=== PATIENT | male | born 1985 | race African-American/Black ===

== ENCOUNTER 2018-12-02 19:45 | Emergency (ER) | payer OTHER ==
[~2018-12-02] VITALS: Ht 182.9 cm; Wt 79.4 kg
[2018-12-02] MEDS ORDERED: KLONOPIN1 MG ORAL (20:00)
[2018-12-02] MEDS ORDERED: XANAX2 MG ORAL (20:00)
[2018-12-02] MEDS ORDERED: DEPAKOTE250 MG PO (20:00)
[2018-12-02 20:12] VITALS: BP 127/78
--- NOTE | 2018-12-02 20:12 | NUR ---
ER Nurse Note: Pt came from home c/o bilateral eye redness and itching for a few days. No drainage, no trauma to eyes. Pupils round, equal, reactive to light. Pt expresses 7/10 pain. Pt a&ox4, VSS, no signs of distress. ER PA at pt side, will continue to montior.
--- NOTE | 2018-12-02 20:36 | Emergency Room Report ---
History of Present Illness General Chief Complaint: Eye Problems Present Illness HPI 33-year-old male presents to the emergency department complaining of 7 out of 10 in severity bilateral burning eye pain with discharge and erythema since yesterday. Patient reports he felt his symptoms coming on since he had some swelling in the bilateral eyes. Patient reports history of immune compromise and states he is HIV. Patient states that he does take his antiretrovirals and states his CD4 count is well above normal. Patient denies fevers, chills, swollen tender lymph nodes, recent URI or nasal congestion. Patient does report moderate amount of sneezing and allergies lately and states that symptoms may have been treated his allergies at first. Patient denies foreign body sensation he reports he does wear contact lenses however since onset of infection is been using his glasses. Patient states that he is up-to-date with his tetanus vaccination. Allergies: Coded Allergies: ASPIRIN (Verified Allergy, Unknown, 12/02/18) Uncoded Allergies: DUST, POLLEN, MOLD, PET DANDER (Allergy, Unknown, 12/02/18) Patient History Past Medical History: see triage record, HIV Past Surgical History: none Pertinent Family History: none Immunizations: UTD Reviewed Nursing Documentation: PMH: Agreed; PSxH: Agreed Nursing Documentation-PMH Hx Asthma: Yes History Of Psychiatric Problem: Yes - bipolar, anxiety Review of Systems All Other Systems: negative except mentioned in HPI Physical Exam Vital Signs Date Time Temp Pulse Resp B/P (MAP) Pulse Ox O2 Delivery O2 Flow Rate FiO2 12/02/18 19:56 98.1 76 16 127/78 100 Room Air Sp02 EP Interpretation: reviewed, normal General Appearance: no apparent distress, alert, GCS 15, non-toxic Head: normocephalic, atraumatic Eyes: bilateral eye normal inspection, bilateral eye PERRL, bilateral eye EOMI , bilateral eye photophobia, bilateral eye visual acuity - 20/70, bilateral eye other - conjunctival erythema, purulent green d/c bilaterally -copious amount. no lid swelling noted. ENT: hearing grossly normal, normal pharynx, normal voice, TMs + canals normal , moist mucus membranes, nasal congestion Neck: full range of motion Respiratory: chest non-tender, lungs clear, normal breath sounds, speaking full sentences Cardiovascular #1: regular rate, rhythm Musculoskeletal: back normal, gait/station normal, normal range of motion, non- tender Neurologic: alert, oriented x3, responsive, motor strength/tone normal, sensory intact, speech normal, grossly normal Psychiatric: judgement/insight normal Skin: normal color, no rash, warm/dry, well hydrated Lymphatic: no adenopathy Medical Decision Making PA Attestation Dr. Regan is my supervising Physician whom patient management has been discussed with. Diagnostic Impression: Primary Impression: Bacterial conjunctivitis of both eyes ER Course 33-year-old male presents to the emergency department complaining of 7 out of 10 in severity bilateral burning eye pain with discharge and erythema since yesterday. Patient reports he felt his symptoms coming on since he had some swelling in the bilateral eyes. Patient reports history of immune compromise and states he is HIV. Patient states that he does take his antiretrovirals and states his CD4 count is well above normal. Patient denies fevers, chills, swollen tender lymph nodes, recent URI or nasal congestion. Patient does report moderate amount of sneezing and allergies lately and states that symptoms may have been treated his allergies at first. Patient denies foreign body sensation he reports he does wear contact lenses however since onset of infection is been using his glasses. Patient states that he is up-to-date with his tetanus vaccination. Ddx considered but are not limited to: corneal abrasion, acute glaucoma, globe rupture, FB, Corneal Ulcer, conjunctivitis. Iridis, orbital cellulitis,keratitis , sinusitis Vital signs: are WNL, pt. is afebrile H&PE are most consistent with: bacterial conjunctivitis. VA - 20/70 bilaterally without his lenses ORDERS: none at this time. ED INTERVENTIONS: - 1g Azithromycin [place] PO-5mg -I do not identify an emergent condition at this time. With current presentation , pt. is stable for close outpatient follow up and conservative treatment. D/ w pt. to return promptly to ED with worsening or new symptoms.- Pt. verbalizes' understanding and agreement with proposed treatment plan. DISCHARGE: At this time pt. is stable for d/c to home. Will provide printed patient care instructions, and any necessary prescriptions. Care plan and follow up instructions have been discussed with the patient prior to discharge. Last Vital Signs Date Time Temp Pulse Resp B/P (MAP) Pulse Ox O2 Delivery O2 Flow Rate FiO2 12/02/18 20:12 98.1 74 16 127/78 100 Room Air Disposition: HOME, SELF-CARE Condition: Stable Scripts Ofloxacin (OCUFLOX) 5 Ml Drops 2 DROP OP BID, #5 ML Prov: Valeria Dennis 12/02/18 Patient Instructions: Bacterial Conjunctivitis, [id number] Additional Instructions: Take medications as directed. Follow up with a Photography Professor in 3 days, even if your symptoms have resolved. --Please review list of primary care clinics, if you do not already have a primary care provider Return sooner to ED if new symptoms occur, or current symptoms become worse. - Please note that this Emergency Department Report was dictated using [employer] technology software, occasionally this can lead to erroneous entry secondary to interpretation by the dictation equipment. Valeria Dennis Dec 02, 2018 20:36
[2018-12-02] MEDS ORDERED: OCUFLOX5 ML OP (20:38)
[2018-12-02] MEDS ORDERED: Azithromycin 250mg tab ORAL ONE (20:45)
[2018-12-02] MEDS ORDERED: HYDROcodone/Acetamin 5/325 tab ORAL ONE (21:00)
[2018-12-02 21:05] VITALS: BP 126/74
--- NOTE | 2018-12-02 21:05 | NUR ---
ER Nurse Note: Pt seen, treated, medically cleared by ER PA for discharge. Discharge instructions and prescriptions given with repeat verbaalization by pt. Instructed pt to follow up with primary care provider within one week. Pt a&ox4, VSS, no signs of distress. Pt expressed pain, ER PA aware, pain meds given. ID band removed. Pt left with steady gait via own transporation with friend.
== END 2018-12-02 21:05 | disposition home or self-care (01) ==
LOC: EMR 20:30
DX: H10.89 Other conjunctivitis (principal); F17.200 Nicotine dependence, unspecified, uncomplicated; Z88.6 Allergy status to analgesic agent; F31.9 Bipolar disorder, unspecified; F41.9 Anxiety disorder, unspecified
CPT/HCPCS: 99283; Q0144